=== PATIENT | female | born 1985 | race Caucasian/White ===

== ENCOUNTER → 2017-01-05 | Outpatient (CLI) | payer BC | LOC: FIMAGING 09:19 | PROVIDERS: ATTEND Obstetrics & Gynecology | DX: Z36 Encounter for antenatal screening of mother (principal); Z3A.12 12 weeks gestation of pregnancy ==

== ENCOUNTER → 2017-02-21 | Outpatient (CLI) | payer BC | LOC: FIMAGING 10:31 | PROVIDERS: ATTEND Obstetrics & Gynecology | DX: Z34.92 Encounter for supervision of normal pregnancy, unspecified, second trimester (principal); K51.90 Ulcerative colitis, unspecified, without complications; Z3A.19 19 weeks gestation of pregnancy; Z87.59 Personal history of other complications of pregnancy, childbirth and the puerperium; Z98.891 History of uterine scar from previous surgery ==

== ENCOUNTER → 2017-05-01 | Outpatient (CLI) | payer BC | LOC: FIMAGING 12:45 | PROVIDERS: ATTEND Advanced Practice Midwife | DX: O99.613 Diseases of the digestive system complicating pregnancy, third trimester (principal); Z3A.29 29 weeks gestation of pregnancy; Z98.891 History of uterine scar from previous surgery ==

== ENCOUNTER → 2017-06-05 | Outpatient (CLI) | payer BC | LOC: FIMAGING 12:57 | PROVIDERS: ATTEND Advanced Practice Midwife | DX: O99.613 Diseases of the digestive system complicating pregnancy, third trimester (principal); O34.219 Maternal care for unspecified type scar from previous cesarean delivery; Z3A.34 34 weeks gestation of pregnancy ==

== ENCOUNTER 2017-07-11 07:44 | Inpatient (IN) | payer BC ==
--- NOTE | 2017-06-14 17:26 | GHP ---
[f rep st] PREOP HISTORY AND PHYSICAL DATE OF PLANNED PROCEDURE: 07/11/2017. PLANNED PROCEDURE: Repeat low transverse section. INDICATIONS: Previous low transverse section. HISTORY OF PRESENT ILLNESS: The patient is a 31-year-old 2, para 1-0-0- 1, whose estimated due date is 07/17/2017, dated by a known last menstrual period of 10/10/2016, consistent with a 7-week ultrasound. The patient has a history of a previous low transverse section for arrest of dilation, intolerance of labor, and HELLP syndrome. She would consider having a vaginal after section if she progresses into active labor, but otherwise would like to have a scheduled repeat section. Her family status is complete, but she declines a tubal ligation at this time. Patient has been properly consented. PAST MEDICAL HISTORY: Significant for history of depression, history of migraines, ulcerative colitis, history of HELLP syndrome, history of hyponatremia after G1, most likely due to overhydration. No followup was needed after that. MEDICATIONS: vitamins, Lialda, Xifaxan, fish oil, vitamin D, iron. PAST SURGICAL HISTORY: Primary low transverse section, colonoscopies, wisdom teeth extraction. ALLERGIES: No known drug allergies. SOCIAL HISTORY: Patient is . She works as a marketing designer. She lives with her and their other child. She denies tobacco, alcohol, or drug use. FAMILY MEDICAL HISTORY: Noncontributory. BRANCH EXAMINER HISTORY: Menarche, age 11. Periods every 28 days, lasting 4-5 days. She is a 2, para 1-0-0-1. In 09/2014, she had a primary low transverse section at 39 weeks' gestation of a 6-pound 5-ounce male infant after 22 hours of labor. The patient had spontaneous rupture of membranes and was diagnosed with HELLP syndrome. She was augmented in labor and progressed to a maximum of 6 cm dilation, and status became non-reassuring, and decision was made to proceed with a primary section. That surgery and delivery were uncomplicated. Her course was complicated by finding of hyponatremia on her preeclampsia labs, but resolved spontaneously. Current has been overall uncomplicated. She did have a growth ultrasound due to her history of ulcerative colitis. During one of those findings, the echogenic bowel in the baby was noted, so she had followup growth ultrasounds and evaluation for the echogenic bowel, which has been reassuring. The patient denies any history of any abnormal Pap smears or sexually transmitted diseases. REVIEW OF SYSTEMS: Ten-point review of systems is negative. She states there is good movement. Denies any loss of fluid or vaginal bleeding. She denies any headache or changes in vision, nausea, vomiting, fevers, or chills. PHYSICAL EXAMINATION: VITAL SIGNS: Stable. GENERAL APPEARANCE: Alert and oriented x3. PSYCH: She has appropriate affect. MUSCULOSKELETAL: Grossly intact. NEURO: Grossly intact. NECK: Mobile and supple. HEART: Rate is regular/regular. LUNGS: Clear to auscultation bilaterally. ABDOMEN: Gravid, nondistended, nontender. EXTREMITIES: Reveal no calf tenderness or edema. PELVIC: Deferred. is noted to be cephalic. LABORATORY DATA: The patient's labs, blood type O positive, antibody screen negative, rubella immune. GBS is still pending. HBsAg is negative. HIV is negative. Her blood glucose was 137. She had a normal 3-hour glucose tolerance test. She did not do a Verifi screen. ASSESSMENT/PLAN: A 31-year-old 2, para 1-0-0-1, who will be 39+ weeks' gestation for a repeat low transverse section. She declines tubal ligation. /[id number]/MODL MTDD
[2017-07-11] MEDS ORDERED: LR 500 ML IV ONE (07:48)
[2017-07-11] MEDS ORDERED: ceFAZolin 2 GM/DEXTROSE 100 ML IV ONE (07:48)
[2017-07-11] MEDS ORDERED: CITRIC ACID/SODIUM CITRATE 30 ML UDCUP PO ONE (07:48)
[2017-07-11] MEDS ORDERED: LR 1,000 ML IV SCH (08:00)
[2017-07-11 08:42] LABS: % IMMATURE GRANULYOCYTES 0.5 % (0.0-1.1); ABSOLUTE IMMATURE GRANULOCYTES 0.04 10^3/uL (0.00-0.10); ADD DIFF? NO; ADD MORPH? NO; ADD SCAN? NO; ATYPICAL LYMPHOCYTE FLAG 0 (0-99); FRAGMENT RBC FLAG 0 (0-99); HEMATOCRIT 42.2 % (38.0-47.0); HEMOGLOBIN 14.7 g/dL (12.6-16.3); LEFT SHIFT FLG 0 (0-99); LIPEMIA HEMOLYSIS FLAG 90 (0-99); MEAN CELL HEMOGLOBIN 30.9 pg (27.9-34.1); MEAN CELL HEMOGLOBIN CONCENTR. 34.8 g/dL (32.4-36.7); MEAN CELL VOLUME 88.8 fL (81.5-99.8); MEAN PLATELET VOLUME 10.4 fL (8.7-11.7); PLATELET CLUMPS FLAG 0 (0-99); PLATELET COUNT 172 10^3/uL (150-400); RED BLOOD CELL COUNT 4.75 10^6/uL (4.18-5.33); RED CELL DISTRIBUTION WIDTH 14.2 % (11.5-15.2)
[2017-07-11] MEDS ORDERED: PHENYLEPHRINE HCL 100 MCG/ML SYR IVP PRN (09:02)
[2017-07-11] MEDS ORDERED: ONDANSETRON 4 MG/2 ML VIAL IVP PRN ×2 (09:02→09:03)
[2017-07-11] MEDS ORDERED: fentaNYL 100 MCG/2 ML INJ IVP PRN (09:02)
[2017-07-11] MEDS ORDERED: OXYCODONE/APAP 5/325 TAB PO PRN (09:02)
[2017-07-11] MEDS ORDERED: HYDROmorphONE/DILAUDID 1 MG/ML INJ IVP PRN (09:02)
--- NOTE | 2017-07-11 09:02 | PREANESOB ---
Obstetric Pre-Anesthesia Info - General Info Proposed Procedure: : 2 Para: 1 MERCEDES: 07/17/17 Gestational Age: 39 week(s) and 1 day(s) - Info Status: Full Term - Labor Status Section History: Repeat Labor Epidural: No Anesthesia Allergies/Adverse Reactions: Allergy/AdvReac Type Severity Reaction Status Date / Time No Known Allergies Allergy Unverified 07/29/10 15:22 Home Medications: Medication Instructions Recorded Mesalamine [Lialda] 1 tab PO BID 09/13/14 Vit27&Calcium/Iron/FA 1 each PO DAILY 09/13/14 [] Rifaximin [Xifaxan] 1 tab PO BID 09/13/14 Visit Medications: Generic Name Dose Route Start Last Admin Trade Name Freq PRN Reason Stop Dose Admin Lactated Ringer's 1,000 mls @ 125 mls/hr 07/11/17 08:00 Lr IV 07/12/17 07:59 CONT LEX Discontinued Medications Generic Name Dose Route Start Last Admin Trade Name Freq PRN Reason Stop Dose Admin Citric Acid/Sodium Citrate 30 ml 07/11/17 07:48 Bicitra PO 07/11/17 07:49 ONCALL ONE Cefazolin Sodium/Dextrose 100 mls @ 200 mls/hr 07/11/17 07:48 Ancef 2 Gm (Premix) IV 07/11/17 08:17 ONCALL ONE Protocol Lactated Ringer's 500 mls @ 0 mls/hr 07/11/17 07:48 Lr IV 07/11/17 07:49 ONCE ONE As Directed - Vital Signs Height/Weight (Nursing): Height 160.02 cm Weight 90.718 kg - Focused Exam Neck exam: FROM Mallampati Score: Class 2 Mouth exam: normal dental/mouth exam Pulmonary: clear to auscultation Cardiovascular: regular rate and rhythym Labs: 07/11/17 08:35 - Plan Consent Signed and on Chart: Yes Patient/Guardian Understands and Agrees to Plan: Yes
[2017-07-11] MEDS ORDERED: NALOXONE HCL 0.4 MG/ML INJ IVP PRN (09:03)
[2017-07-11] MEDS ORDERED: morphINE PF 5 MG/10 ML INJ ONE (09:11)
[2017-07-11] MEDS ORDERED: METOCLOPRAMIDE 10 MG/2 ML VIAL ONE (09:19)
[2017-07-11] MEDS ORDERED: OXYTOCIN 100 UNITS/10 ML VIAL ONE (09:19)
[2017-07-11] MEDS ORDERED: ONDANSETRON 4 MG/2 ML VIAL ONE (09:19)
[2017-07-11] MEDS ORDERED: MISOPROSTOL 200 MCG TAB ONE (09:20)
[2017-07-11] MEDS ORDERED: RANITIDINE 50 MG/2 ML VIAL ONE (09:36)
[2017-07-11] MEDS ORDERED: epHEDrine SULFATE 10 MG/ML SYR ONE ×2 (09:37)
[2017-07-11] MEDS ORDERED: PHENYLEPHRINE HCL 100 MCG/ML SYR ONE (09:43)
[2017-07-11] MEDS ORDERED: SIMETHICONE 80 MG TAB CHEW PO PRN (11:11)
[2017-07-11] MEDS ORDERED: LACTULOSE 20 GM/30 ML UDCUP PO PRN (11:11)
[2017-07-11] MEDS ORDERED: BISACODYL 10 MG SUPP PR PRN (11:11)
[2017-07-11] MEDS ORDERED: POLYETHYLENE GLYCOL 3350 17 GM PKT PO PRN (11:11)
[2017-07-11] MEDS ORDERED: MAGNESIUM HYDROXIDE 30 ML UDCUP PO PRN (11:11)
[2017-07-11] MEDS ORDERED: ACETAMINOPHEN 325 MG TAB PO PRN (11:11)
[2017-07-11] MEDS ORDERED: DOCUSATE SODIUM 100 MG CAP PO PRN (11:11)
--- NOTE | 2017-07-11 11:19 | OBDEL ---
Info Type: Repeat Presentation at Delivery: Vertex L&D Analgesia/Anesthesia Type: Spinal GBS+: No Intrapartum Medications: Discontinued Medications Generic Name Dose Route Start Last Admin Trade Name Medina PRN Reason Stop Dose Admin Cefazolin Sodium/Dextrose 100 mls @ 200 mls/hr 07/11/17 07:48 07/11/17 09:14 Ancef 2 Gm (Premix) IV 07/11/17 08:17 100 mls ONCALL ONE Administration Protocol Indications for Delivery: Elective Operative Report - Delivery Pre-op Diagnoses: IUP at 39 weeks, hx prior section declines trial of labor Post-op Diagnoses: same as pre op History of Prior Section: Yes Number of Prior Sections: 1 Nulliparous Prior to Delivery: No Indications for Prior Section: Arrest of Dilation, Non-reas. Status Indications for Current Section: Elective/Repeat Procedure: Scheduled, Low Transverse Surgeon: Terrie Servin Insulation Worker Apprentice: Sofia burgess) Anesthesiologist: Connor Andrews Complications: None EBL: [address] Data MERCEDES: 07/17/17 Gestational Age: 39 week(s) and 1 day(s) [facility] Delivery Date: 07/11/17 Delivery Time: 09:59 Sex of : Male Score (1 Min): 8 Score (5 Min): 9 ICD10 Worksheet Patient Problems: Problems Problem Status Onset delivery delivered Acute History of depression Acute Ulcerative colitis Acute
[2017-07-11] MEDS ORDERED: KETOROLAC 30 MG/1 ML SDV ONE (11:35)
[2017-07-11] MEDS: KETOROLAC 30 MG/1 ML SDV IVP SCH ×3 (11:37→23:41)
--- NOTE | 2017-07-11 15:07 | POSTANESTH ---
Post Anesthetic Evaluation Cardiovascular Status: Normal, Stable Respiratory Status: Normal, Stable Level of Consciousness/Mental Status: Can Participate in Eval, Alert and Oriented Pain Control: Adequate, Prn Tx Ordered Nausea/Vomiting Control: Adequate, Prn Tx Ordered Complications Possibly Related to Anesthesia: None Noted
[2017-07-11] MEDS: RIFAXIMIN 550 MG TAB PO SCH (20:26)
[2017-07-11] MEDS: Mesalamine [Lialda] 1.2 GM PO SCH (20:26)
[2017-07-11] MEDS: SENNOSIDES/DOCUSATE SODIUM TAB PO SCH (23:42)
[2017-07-12] MEDS: HYDROCODONE/APAP 5/325 TAB PO PRN ×6 (04:25→21:55)
[2017-07-12] MEDS: KETOROLAC 30 MG/1 ML SDV IVP SCH ×2 (06:27→07:05)
[2017-07-12] MEDS: IBUPROFEN 600 MG TAB PO PRN ×3 (06:31→18:35)
[2017-07-12] MEDS: SENNOSIDES/DOCUSATE SODIUM TAB PO SCH (07:54)
--- NOTE | 2017-07-12 08:01 | POSTANESTH ---
Post Anesthetic Evaluation Cardiovascular Status: Normal, Stable Respiratory Status: Normal, Stable Level of Consciousness/Mental Status: Can Participate in Eval, Alert and Oriented Pain Control: Adequate, Prn Tx Ordered Nausea/Vomiting Control: Adequate, Prn Tx Ordered (DURAMORPH Follow-Up: Pain well controlled. Pt amublating without difficulty. She mentioned a "spinal headache" but denied any positional component and stated it went away with a pain pill.)
[2017-07-12] MEDS: RIFAXIMIN 550 MG TAB PO SCH ×2 (11:53→21:55)
[2017-07-12] MEDS: Mesalamine [Lialda] 1.2 GM PO SCH ×2 (11:53→21:55)
--- NOTE | 2017-07-12 13:35 | OBPP ---
Progress Note Assessment/Plan: Assessment: POD 1 s/p RCS mild anemia generalized mild itching Plan: routine care, iron daily 07/12/17 13:32 Subjective/ Course: 07/12/17 13:33 Doing well. Baby is BF well. Pain is well controlled with [place]/ibu. urinating fine. clovis reg diet. generalized itching - abd had some redness but lessening. Objective: 07/12/17 04:23 Patient ABO/Rh O POSITIVE 07/11/17 08:35 Temp Pulse Resp BP Pulse Ox 36.2 C 76 16 107/59 L 98 07/12/17 08:00 07/12/17 08:00 07/12/17 08:00 07/12/17 08:00 07/12/17 08:00 Uterine Position/Fundal Height: Umbilicus -1 Uterine Tone: Firm Physical Exam - Physical Exam Abdomen: non-tender (approp post op tenderness), soft, other (bandage CDI, FF at umb -1) Extremities: non-tender, pedal edema (moderate) Skin: normal color, warm/dry Neuro/Psych: alert, normal mood/affect
[2017-07-12] MEDS: IRON POLYSAC/IRON HEME 28 MG TAB PO SCH (17:29)
[2017-07-13] MEDS: IBUPROFEN 600 MG TAB PO PRN ×4 (00:48→18:42)
[2017-07-13] MEDS: HYDROCODONE/APAP 5/325 TAB PO PRN ×6 (02:26→22:53)
[2017-07-13] MEDS: SENNOSIDES/DOCUSATE SODIUM TAB PO SCH ×3 (02:26→20:33)
[2017-07-13] MEDS: IRON POLYSAC/IRON HEME 28 MG TAB PO SCH (08:56)
[2017-07-13 10:43] VITALS: RESP 16
[2017-07-13] MEDS: Mesalamine [Lialda] 1.2 GM PO SCH ×2 (11:11→20:33)
[2017-07-13] MEDS: RIFAXIMIN 550 MG TAB PO SCH ×2 (11:11→20:33)
--- NOTE | 2017-07-13 20:58 | OBPP ---
Progress Note Assessment/Plan: Assessment: pod# 2 s/p RLTCS breast feeding anemia Plan: routine post and post operative care iron 07/13/17 20:56 Subjective/ Course: 07/12/17 13:33 Doing well. Baby is BF well. Pain is well controlled with [place]/ibu. urinating fine. clovis reg diet. generalized itching - abd had some redness but lessening. 07/13/17 20:56 patient is doing great! pain is well controlled. normal lochia. denies headache and changes in vision. breast feeding is going well. passing gas and had a bowel movement. voiding without difficulty. Objective: 07/12/17 04:23 Patient ABO/Rh O POSITIVE 07/11/17 08:35 Temp Pulse Resp BP Pulse Ox 36.2 C 81 16 119/75 95 07/13/17 10:42 07/13/17 10:42 07/13/17 10:42 07/13/17 10:42 07/13/17 05:00 Physical Exam - Physical Exam Neck: non-tender, full range of motion, supple Respiratory: chest non-tender, lungs clear, normal breath sounds Cardiac/Chest: normal peripheral pulses, regular rate, rhythm Abdomen: normal bowel sounds, non-tender Extremities: normal range of motion, non-tender, normal inspection, normal capillary refill Skin: normal color, warm/dry Neuro/Psych: no motor/sensory deficits, alert, normal mood/affect, oriented x 3
[2017-07-14] MEDS: IBUPROFEN 600 MG TAB PO PRN ×2 (00:55→07:37)
[2017-07-14] MEDS: HYDROCODONE/APAP 5/325 TAB PO PRN ×2 (03:37→07:37)
--- NOTE | 2017-07-14 07:17 | GOP ---
[f rep st] OPERATIVE REPORT DATE OF OPERATION: 07/11/2017 SURGEON: Terrie Servin DO COMPANY TRUCK DRIVER: EVAN Damon CNM ANESTHESIOLOGIST: Connor Andrews DO PREOPERATIVE DIAGNOSIS: 1. Intrauterine at 39 and 1/7 weeks' gestation. 2. History of previous section. Declines trial of labor. POSTOPERATIVE DIAGNOSIS: 1. Intrauterine at 39 and 1/7 weeks' gestation. 2. History of previous section. Declines trial of labor. PROCEDURE PERFORMED: Repeat low transverse section. FINDINGS: 1. Viable male in the cephalic presentation, delivered at 9:59 a.m. Apgars were 8 and 9. 2. Intact placenta with 3-vessel cord. 3. Normal ovaries, uterus, and tubes. ESTIMATED BLOOD LOSS: 800 cc. INDICATIONS: Patient is a 32-year-old 2, para 1-0-0-1, who has a history of a previous low t ransverse section for arrest of dilation and nonreassuring status. The patient is gisela cting to proceed with a repeat low transverse section and declines a trial of labor. Risks and benefits have been reviewed with the patient, and patient has been properly consented. DESCRIPTION OF PROCEDURE: Patient was taken to the operating room with intravenous fluids in place. She was given 2 g of Ancef intravenously and seated on the operating room table where spinal anesthe randi was obtained. She was then repositioned into the dorsal supine position with a leftward tilt and prepped and draped in the normal sterile fashion. A Rob catheter was then placed, Venodynes were placed on her lower extremities, and anesthesia was assessed and found to be adequate. A Pfannenstiel skin incision was then made 2 fingerbreadths above the pubic symphysis along the previ ous section scar. The previous keloid scar was excised without difficulty. The incision wa s then carried through to the underlying layer of fascia with the Bovie. The fascia was then nicked in the midline, and the fascial incision was extended laterally. The superior aspect of the fascial incision was then grasped with the Kochers, tented up, and the underlying rectus muscle dissected off bluntly with the Bovie. Attention was then turned to the inferior aspect of the fascial incision, which in a similar fashion was grasped with Kochers, tented up, and the underlying rectus muscle dissected off bluntly with the Bovie. The rectus muscle was then in the midline. The peritoneum was then identified, ten barbara up, and entered sharply with the Metzenbaum scissors. The incision was extended superiorly and i nferiorly with excellent visualization of the bladder. The bladder blade was then inserted. The ves icouterine peritoneum was then identified, tented up, and entered sharply with the Metzenbaum scissor s. The incision was extended laterally, and a bladder flap was created digitally. The bladder blade was then inserted. The uterus was then incised in a low transverse fashion with the scalpel. The u terine incision was extended laterally. Membranes were artificially ruptured. A large amount of carlos ar fluid was noted. The 's head was noted to be floating and was then delivered through the in cision with fundal pressure. The viable male was then delivered at 9:59 a.m. Delayed cord cl amping was done. Cord was clamped x2 and cut after 1 minute. Cord blood was obtained, and the infan t was handed off to awaiting nurse practitioner. Intact placenta with 3-vessel cord deliver ed without difficulty. The uterus was then exteriorized and cleared of all clots and debris and wrapped in a moist laparotom y sponge. The bladder blade was then reinserted. The uterine incision was then closed with 0 Vicryl in a running locked fashion. Pitocin was then started. Atony was noted, so 1 dose of Methergine wa s given intramuscularly in her thigh. The hysterotomy remained hemostatic. However, either the asce nding cervical branch of the uterine artery or a bladder pedicle was noted to be bleeding. An 0 Vicr yl stitch was used to achieve hemostasis, taking care to avoid the bladder. The hysterotomy remained hemostatic. Ovaries, uterus, and tubes were unremarkable. The uterus was then returned to the patient's abdomen. The gutters were cleared of all clots and florentino ris, and the hysterotomy and bladder pedicles remained hemostatic. Peritoneum was reapproximated wit h 3-0 Vicryl in running fashion. Rectus muscle was reapproximated with 2-0 Vicryl in a running fashi on. Fascia was closed with 0 Vicryl in a running fashion. Subcutaneous tissue was found to be hemos tatic, and Cathy fascia was reapproximated with 3-0 Vicryl in a running fashion. The subcuticular t issue was reapproximated with 3-0 Vicryl in a running fashion. Sponge, lap, and needle counts were c orrect x2. Patient was transported to recovery room in stable condition. /[id number]/MODL
[2017-07-14] MEDS: IRON POLYSAC/IRON HEME 28 MG TAB PO SCH (07:37)
[2017-07-14] MEDS: SENNOSIDES/DOCUSATE SODIUM TAB PO SCH (07:38)
[2017-07-14 08:06] VITALS: BP 112/78; PULSE 75; TEMP 97; O2SAT 94
[2017-07-14] MEDS: RIFAXIMIN 550 MG TAB PO SCH (10:08)
[2017-07-14] MEDS: Mesalamine [Lialda] 1.2 GM PO SCH (10:08)
--- NOTE | 2017-07-14 10:24 | OBGCSDC ---
General Delivery Information - General Info : 2 Para: 2 Abortions: 0 Type: Repeat L&D Analgesia/Anesthesia Type: Spinal Admission Date: 07/11/17 Labs: Patient ABO/Rh O POSITIVE 07/11/17 08:35 Hct 33.7 % (38.0-47.0) L 07/12/17 04:23 - Hospital Course : 07/12/17 13:33 Doing well. Baby is BF well. Pain is well controlled with [place]/ibu. urinating fine. clovis reg diet. generalized itching - abd had some redness but lessening. 07/13/17 20:56 patient is doing great! pain is well controlled. normal lochia. denies headache and changes in vision. breast feeding is going well. passing gas and had a bowel movement. voiding without difficulty. 07/14/17 10:21 Pt is doing well. She has good pain control with PO meds and is tolerating Ibuprofen, [place] well. She denies N/v, is ambulating, voiding well and had a normal BM. Breast feeding is going well and baby has a good latch. They are ready to d/c home. - Delivery Providers Surgeon: Terrie Servin Implementation Technician: Sofia burgess) Anesthesiologist: Connor Andrews - Delivery Number of Prior Sections: 1 Indications for Current Section: Elective/Repeat Surgical Procedures: Scheduled, Low Transverse Intra-op Complications: None EBL: [address] Data MERCEDES: 07/17/17 Gestational Age: 39 week(s) and 4 day(s) [facility] Delivery Date: 07/11/17 Delivery Time: 09:59 Sex of : Male Score (1 Min): 8 Score (5 Min): 9 Discharge Information - Discharge Information Prescriptions: Hydrocodone/APAP 5/325 [[place] 5/325 (*)] 1 - 2 tab PO Q4HRS PRN #30 tab PRN Reason: Pain, Moderate Ibuprofen [Motrin (*)] 600 mg PO Q6HRS PRN #30 tab PRN Reason: Inflammation Iron Polysacch/Iron Heme Polyp [Bifera] 28 mg PO DAILY #30 tab Instruction/Follow Up: Two Weeks, Four Weeks, Six Weeks
--- NOTE | 2017-07-14 10:24 | OBPP ---
Progress Note Assessment/Plan: Assessment: 32 y/o POD #3 s/p Rpt LTCS doing well. Plan: D/c home today with Rx Ibuprofen, Latta and Bifera. Follow-up @ [facility] 2, 4 and 6 weeks. 07/14/17 10:23 Subjective/ Course: 07/12/17 13:33 Doing well. Baby is BF well. Pain is well controlled with Latta/ibu. urinating fine. clovis reg diet. generalized itching - abd had some redness but lessening. 07/13/17 20:56 patient is doing great! pain is well controlled. normal lochia. denies headache and changes in vision. breast feeding is going well. passing gas and had a bowel movement. voiding without difficulty. 07/14/17 10:21 Pt is doing well. She has good pain control with PO meds and is tolerating Ibuprofen, Latta well. She denies N/v, is ambulating, voiding well and had a normal BM. Breast feeding is going well and baby has a good latch. They are ready to d/c home. Objective: 07/12/17 04:23 Patient ABO/Rh O POSITIVE 07/11/17 08:35 Temp Pulse Resp BP Pulse Ox 36.1 C 75 16 112/78 94 07/14/17 08:04 07/14/17 08:04 07/14/17 08:04 07/14/17 08:04 07/14/17 08:04 Uterine Position/Fundal Height: Umbilicus -2 Uterine Tone: Firm Physical Exam - Physical Exam Neck: non-tender, full range of motion, supple Respiratory: chest non-tender, lungs clear, normal breath sounds Cardiac/Chest: regular rate, rhythm Abdomen: normal bowel sounds, incision (c/d/i) Extremities: swelling (2+), Linda's sign (neg)
== END 2017-07-14 11:29 | disposition home or self-care (01) | DRG 766 ==
LOC: FLD 07:44 → FOB 12:14
PROVIDERS: ADMIT Obstetrics & Gynecology; ATTEND Obstetrics & Gynecology
PROC: 10D00Z1 Extraction of Products of Conception, Low, Open Approach (ICD-10-PCS; principal; 2017-07-11)
DX: O34.219 Maternal care for unspecified type scar from previous cesarean delivery (principal); Z37.0 Single live birth; Z3A.39 39 weeks gestation of pregnancy
CPT/HCPCS: J0690; J1885; J2274; J2370; J2405; J2590; J2765; J2780

== ENCOUNTER → 2018-05-28 | Outpatient (CLI) | payer BC | LOC: CIMAGING 08:50 | PROVIDERS: ATTEND Family Medicine | DX: R10.11 Right upper quadrant pain (principal); R11.0 Nausea; R93.2 Abnormal findings on diagnostic imaging of liver and biliary tract | CPT/HCPCS: 76705-PO ==